=== PATIENT | female | born 1960 | race Caucasian/White ===

== ENCOUNTER 2021-04-21 11:12 | Emergency (ER) | payer BC ==
[~2021-04-21] VITALS: Ht 162.6 cm; Wt 70.8 kg
[2021-04-21 12:02] LABS: BASOPHILS ABSOLUTE AUTO 0.07 K/mm3 (0.00-0.23); BASOPHILS PERCENT AUTO 1 % (0-2); EOSINOPHILS ABSOLUTE AUTO 0.31 K/mm3 (0.00-0.68); EOSINOPHILS PERCENT AUTO 4 % (0-6); Hematocrit 49.4 % (33.0-51.0); Hemoglobin 16.5 g/dL (11.5-16.0); IMMATURE GRAN ABSOLUTE AUTO 0.03 K/mm3 (0.00-0.10); IMMATURE GRAN PERCENT AUTO 0 % (0-1); LYMPHOCYTES ABSOLUTE AUTO 2.35 K/mm3 (0.84-5.20); LYMPHOCYTES PERCENT AUTO 27 % (21-46); MONOCYTES ABSOLUTE AUTO 0.63 K/mm3 (0.16-1.47); MONOCYTES PERCENT AUTO 7 % (4-13); Mean Corpuscular HGB 30.4 pg (26.0-34.0); Mean Corpuscular HGB Conc 33.4 g/dL (31.5-36.5); Mean Corpuscular Volume 91 fL (80-100); Mean Platelet Volume 11.3 fL (9.1-12.4); NEUTROPHILS ABSOLUTE AUTO 5.19 K/mm3 (1.96-9.15); NEUTROPHILS PERCENT AUTO 61 % (41-73); Platelet Count 165 K/mm3 (150-400); RDW Coefficient Variation 12.6 % (11.7-14.2); RDW Standard Deviation 42.4 fL (35.1-46.3); Red Blood Cell Count 5.43 M/mm3 (3.80-5.20); White Blood Cell Count 8.58 K/mm3 (4.00-11.30)
[2021-04-21 12:20] LABS: Alanine Aminotransfer (ALT/SGP 38 U/L (12-78); Albumin, Blood 3.7 g/dL (3.4-5.0); Albumin/Globulin Ratio 0.8 (0.8-1.8); Alk Phos 144 U/L (50-136); Anion Gap 6 mmol/L (6-16); Aspartate Aminotrans (AST/SGOT 40 U/L (12-37); Bilirubin, Total 0.9 mg/dL (0.1-1.0); Blood Urea Nitrogen 6 mg/dL (8-24); Bun/Creatinine Ratio 9.8 (12.0-20.0); CO2, Blood 32 mmol/L (21-32); Calcium, Blood 9.7 mg/dL (8.5-10.1); Chloride, Blood 99 mmol/L (98-108); Creatinine, Blood 0.61 mg/dL (0.40-1.00); Globulin, Blood 4.6 g/dL (2.2-4.0); Glomerular Filtration Rate >60 (60-); Glucose, Blood 217 mg/dL (70-99); Potassium, Blood 3.6 mmol/L (3.5-5.5); Sodium, Blood 137 mmol/L (136-145); Total Protein, Blood 8.3 g/dL (6.4-8.2); Troponin I <0.015 ng/mL (0.000-0.040)
[2021-04-21] MEDS ORDERED: IBUP600 PO (13:41)
[2021-04-21] MEDS ORDERED: GLIP5 PO (13:54)
== END 2021-04-21 14:00 | disposition home or self-care (01) ==
LOC: ER 11:12
PROVIDERS: Emergency Medicine
DX: R07.9 Chest pain, unspecified (principal); E11.9 Type 2 diabetes mellitus without complications; J44.9 Chronic obstructive pulmonary disease, unspecified
CPT/HCPCS: 71045; 80053; 84484; 85025; 93005; 93010; 96374; 99284-25; J1885

== ENCOUNTER 2023-06-15 01:37 | Inpatient (IN) | payer OTHER, MEDICARE ==
[2023-06-15] VITALS (18 sets, daily range): BP systolic 106–145; BP diastolic 59–89
[~2023-06-15] VITALS: Ht 162.6 cm; Wt 84.0 kg
[~2023-06-15 01:37] MED LIST: ATORVASTATIN CA20 MG PO; DULOXETINE HCL60 M1 PO; GLIP5 PO; IBUP600 PO; LISINOPRIL-HCT1 EACH PO; METF500 PO; PIOGLITAZONE HC15 MG PO; POTA8 PO; Ventolin/Prove6.7 GM INH
[2023-06-15 02:41] LABS: BASOPHILS ABSOLUTE AUTO 0.05 K/mm3 (0.00-0.23); BASOPHILS PERCENT AUTO 1 % (0-2); EOSINOPHILS ABSOLUTE AUTO 0.14 K/mm3 (0.00-0.68); EOSINOPHILS PERCENT AUTO 2 % (0-6); Hematocrit 34.2 % (33.0-51.0); Hemoglobin 10.9 g/dL (11.5-16.0); IMMATURE GRAN ABSOLUTE AUTO 0.01 K/mm3 (0.00-0.10); IMMATURE GRAN PERCENT AUTO 0 % (0-1); LYMPHOCYTES PERCENT AUTO 23 % (21-46); MONOCYTES ABSOLUTE AUTO 0.46 K/mm3 (0.16-1.47); MONOCYTES PERCENT AUTO 7 % (4-13); Mean Corpuscular HGB 28.9 pg (26.0-34.0); Mean Corpuscular HGB Conc 31.9 g/dL (31.5-36.5); Mean Corpuscular Volume 91 fL (80-100); Mean Platelet Volume 11.9 fL (9.1-12.4); NEUTROPHILS ABSOLUTE AUTO 4.15 K/mm3 (1.96-9.15); NEUTROPHILS PERCENT AUTO 67 % (41-73); Platelet Count 157 K/mm3 (150-400); RDW Coefficient Variation 17.9 % (11.7-14.2); RDW Standard Deviation 58.4 fL (35.1-46.3); Red Blood Cell Count 3.77 M/mm3 (3.80-5.20); White Blood Cell Count 6.21 K/mm3 (4.00-11.30)
[2023-06-15 03:00] LABS: Albumin, Blood 3.7 g/dL (3.4-5.0); Albumin/Globulin Ratio 0.8 (0.8-1.8); Bilirubin, Total 0.5 mg/dL (0.1-1.0); Bun/Creatinine Ratio 19.8 (12.0-20.0); Calcium, Blood 9.1 mg/dL (8.5-10.1); Creatinine, Blood 0.46 mg/dL (0.40-1.00); Globulin, Blood 4.5 g/dL (2.2-4.0); Potassium, Blood 4.7 mmol/L (3.5-5.5); Total Protein, Blood 8.2 g/dL (6.4-8.2)
[2023-06-15 05:26] LABS: BASOPHILS ABSOLUTE AUTO 0.04 K/mm3 (0.00-0.23); BASOPHILS PERCENT AUTO 1 % (0-2); EOSINOPHILS ABSOLUTE AUTO 0.17 K/mm3 (0.00-0.68); EOSINOPHILS PERCENT AUTO 2 % (0-6); Hematocrit 32.6 % (33.0-51.0); Hemoglobin 10.4 g/dL (11.5-16.0); IMMATURE GRAN ABSOLUTE AUTO 0.03 K/mm3 (0.00-0.10); IMMATURE GRAN PERCENT AUTO 0 % (0-1); LYMPHOCYTES PERCENT AUTO 19 % (21-46); MONOCYTES ABSOLUTE AUTO 0.64 K/mm3 (0.16-1.47); MONOCYTES PERCENT AUTO 8 % (4-13); Mean Corpuscular HGB 28.6 pg (26.0-34.0); Mean Corpuscular HGB Conc 31.9 g/dL (31.5-36.5); Mean Corpuscular Volume 90 fL (80-100); Mean Platelet Volume 12.3 fL (9.1-12.4); NEUTROPHILS PERCENT AUTO 70 % (41-73); Platelet Count 151 K/mm3 (150-400); RDW Coefficient Variation 17.7 % (11.7-14.2); RDW Standard Deviation 57.4 fL (35.1-46.3); Red Blood Cell Count 3.64 M/mm3 (3.80-5.20); White Blood Cell Count 7.88 K/mm3 (4.00-11.30)
[2023-06-15 05:50] LABS: Albumin, Blood 3.6 g/dL (3.4-5.0); Albumin/Globulin Ratio 0.9 (0.8-1.8); Bilirubin, Total 0.5 mg/dL (0.1-1.0); Bun/Creatinine Ratio 19.7 (12.0-20.0); Calcium, Blood 9.1 mg/dL (8.5-10.1); Creatinine, Blood 0.46 mg/dL (0.40-1.00); Globulin, Blood 4.1 g/dL (2.2-4.0); Magnesium, Blood 1.6 mg/dL (1.6-2.4); Potassium, Blood 3.9 mmol/L (3.5-5.5); Total Protein, Blood 7.7 g/dL (6.4-8.2)
[2023-06-15] MEDS ORDERED: NEURONTIN300 MG PO (08:09)
[2023-06-15] MEDS ORDERED: ESOMEPRAZOLE MA20 MG PO (08:09)
[2023-06-15] MEDS ORDERED: CARBIDOPA-LEVO1 EA15 PO (08:09)
--- NOTE | 2023-06-15 13:46 | NUR ---
06/15/23 1346 Bianca Medley ADDUCTOR CANAL BLOCK COMPLETED BY DR. MORAN IN DAY SURGERY BEFORE ENTERING OR. PT TOLERATED WELL
--- NOTE | 2023-06-15 15:29 | NUR ---
UPDATE PATIENT TRANSPORTED TO DAYSURGERY AT 1200, STILL NOT BACK TO ROOM.
--- NOTE | 2023-06-15 17:12 | NUR ---
POST OP BACK FROM PACU, VITALS STARTED R ANKLE IN SPLINT WITH SALIMA, C/D/I. ELEVATED ON PILLOWS. 3 L NC SATS ABOVE 95%. DENIES N/T, CAP REFILL<3 SECS CAN MOVE ALL TOES. DENIES NAUSEA. DROWSY BUT AROUSABLE, ANSWERS ALL QUESTIONS. SIPPING ON CL. CALL LIGHT IN REACH.
[2023-06-16 04:15] VITALS: BP 139/79
[2023-06-16 07:41] VITALS: BP 132/71
--- NOTE | 2023-06-16 07:43 | NUR ---
SHIFT SUMMARY NOC. PT A/O X4 THIS SHIFT. PT POD 1 FOR ANKLE REPAIR. PT PAINFUL THIS SHIFT AND MEDICATED FOR PAIN WITH MINIMAL RELIEF. TRIED NON PHARM INTERVENTIONS WELL. PT WORE CPAP DURING SLEEP AND O2 SATS REMAINED ABOVE 90%. PT'S RIGHT ANKLE HAS GOOD CAP REFIL, SENSATION INTACT AND NO BLEEDING FROM SOFT SPLINT. PT RESTED FOR BRIEF PERIODS WITH CALL LIGHT IN REACH.
[2023-06-16 14:55] VITALS: BP 114/62
--- NOTE | 2023-06-16 17:00 | NUR ---
SHIFT SUMMARY PATIENT IS POD1 R ANKLE ORIF.PATIENT IS NWB ON RLE.WORKED WITH PT TODAY AND RECOMMENDED FOR SNF PLACEMENT. PATIENT IS A 2 ASSIST TO THE CHAIR/BSC. GB, FWW. PATIENT IS IMPULSIVE AT TIMES AND NEEDS REMINDING TO CALL FOR ASSISTANCE, BED ALARM IS ON FOR SAFETY. PATIENT IS AOX4, ABLE TO MAKE NEEDS KNOWN. IS CURRENTLY ON 2 L NC, AND SATS AT 95% AND ABOVE. PATIENT DOES DESAT WITH PAIN MEDICATION. HX OF COPD. TOLERATING PO INTAKE, VOIDING WELL AND DENIES N/V. VSS, CALL LIGHT IS IN REACH.
[2023-06-16 20:00] VITALS: BP 127/72
[2023-06-17 00:14] VITALS: BP 136/76
[2023-06-17 03:43] VITALS: BP 130/64
--- NOTE | 2023-06-17 04:58 | NUR ---
SHIFT SUMMARY PT POD 1 R ANKLE ORIF. PT HAS BEEN PAINFUL THIS SHIFT, AND HAS REQUIERED FREQUENT PRN'S TO RELEIVE PAIN. R ANKLE REMAINS SPLINTED, PT DENIES N/T IN AFFECTED EXT AND IS ABLE TO WIGGLE TOES. VITALS ARE STABLE. PLAN IS FOR DISCHARGE SNF TODAY, PLAN OF CARE UNCHANGED. PT APPEARS TO BE RESTING COMFORTABLY THIS AM. BED IN LOWEST POSITION, CALL LIGHT WITHIN REACH.
[2023-06-17 07:12] VITALS: BP 143/80
--- NOTE | 2023-06-17 14:03 | NUR ---
DISCHARGE NOTE: PATIENT WILL BE LEAVING FOR [facility] AT 1600 TODAY WITH TRANSPORT. THIS NURSE JUST GAVE REPORT TO SAIRA LOUIS AT [facility]. AFTER REPORT SAIRA LOUIS HAD NO FURTHER QUESTIONS AT THIS TIME. PAIN IS MANAGED WITH PO PAIN MEDS. HARD PERSCRIPTION IS PLACED IN THE DISCHARGE FOLDER THAT CASE MANAGEMENT ASSEMBLED. HER RIGHT ANKLE HAS A SPLINT IN PLACE THAT IS C/D/I. SHE IS ABLE TO MOVE ALL FINGERS AND TOES WHEN ASKED. SHE IS TOLERATING PO INTAKE AND IS VOIDING. 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 PATIENT IS AWARE OF BEING NON WEIGHT BEARING ON THE RIGHT FOOT. PATIENT IS DRESSED AND HAD PERSONAL ITEMS IN THE ROOM GATHERED. AWAITING FOR TRANSPORT TO TAKE HER TO [facility].
--- NOTE | 2023-06-17 15:39 | NUR ---
TRANSPORT CAME AND PICKED UP THE PATIENT IN A WHEELCHAIR. SHE HAS HER PERSONAL ITEMS IN THE ROOM GATHERED AND IS BEING TAKEN TO [facility].
== END 2023-06-17 15:39 | DRG 494 ==
LOC: ER 01:37 → ERHOLD 04:24 → SURS 04:24
PROVIDERS: Orthopaedic Surgery; Student in an Organized Health Care Education/Training Program; ADMIT Student in an Organized Health Care Education/Training Program
PROC: 0QSJ04Z Reposition Right Fibula with Internal Fixation Device, Open Approach (ICD-10-PCS; 2023-06-15)
PROC: 0QSJXZZ Reposition Right Fibula, External Approach (ICD-10-PCS; 2023-06-15)
PROC: 0QSGXZZ Reposition Right Tibia, External Approach (ICD-10-PCS; 2023-06-15)
PROC: 5A09357 Assistance with Respiratory Ventilation, Less than 24 Consecutive Hours, Continuous Positive Airway Pressure (ICD-10-PCS; 2023-06-15)
PROC: 0QSG04Z Reposition Right Tibia with Internal Fixation Device, Open Approach (ICD-10-PCS; principal; 2023-06-15 12:30)
DX: S82.851A Displaced trimalleolar fracture of right lower leg, initial encounter for closed fracture (principal); E11.40 Type 2 diabetes mellitus with diabetic neuropathy, unspecified; G20.A1 Parkinson's disease without dyskinesia, without mention of fluctuations; J44.9 Chronic obstructive pulmonary disease, unspecified; G47.33 Obstructive sleep apnea (adult) (pediatric); K76.0 Fatty (change of) liver, not elsewhere classified; W01.0XXA Fall on same level from slipping, tripping and stumbling without subsequent striking against object, initial encounter; F17.200 Nicotine dependence, unspecified, uncomplicated; Z79.84 Long term (current) use of oral hypoglycemic drugs
CPT/HCPCS: 27818; 73590; 73600; 80053; 82947; 83735; 85025; 93005; 93010; 94660; 94762; 96361-59; 96374-59; 96375-59; 96376-59; 97110; 97116; 97162; 97166; 97530; 97535; 99285-25; A9270; C1713; C1769; J0171; J0690; J1100; J1170; J1650; J1815; J1885; J2250; J2405; J2704; J3010; J7030; J7120

== ENCOUNTER 2024-12-01 10:14 | Emergency (ER) | payer OTHER ==
[~2024-12-01 10:14] MED LIST changes: +CARBIDOPA-LEVO1 EA15 PO; +ESOMEPRAZOLE MA20 MG PO; +NEURONTIN300 MG PO
== END 2024-12-01 10:41 | disposition left against medical advice (07) ==
LOC: ER 10:14
DX: R10.9 Unspecified abdominal pain (principal); Z53.21 Procedure and treatment not carried out due to patient leaving prior to being seen by health care provider